=== PATIENT | female | born 1990 | race African-American/Black ===

== ENCOUNTER 2021-04-11 08:50 | Emergency (ER) | payer MEDICAID ==
[~2021-04-11] VITALS: Ht 162.6 cm; Wt 118.0 kg
[2021-04-11 08:54] VITALS: BP 136/84
[2021-04-11] MEDS ORDERED: DEXAMETHASONE 2MG TABLET PO ONE (13:30)
[2021-04-11] MEDS ORDERED: DEXA6TAB MT (13:31)
[2021-04-11] MEDS ORDERED: ALBU90AE INH (13:31)
== END 2021-04-11 14:01 | disposition home or self-care (01) ==
LOC: ER 08:50
DX: J45.901 Unspecified asthma with (acute) exacerbation (principal)
CPT/HCPCS: 93005; 99283; J8540